=== PATIENT | female | born 1970 | race Caucasian/White ===

== ENCOUNTER 2024-07-26 17:27 | Emergency (ER) | payer MEDICARE, MEDICAID ==
[~2024-07-26] VITALS: Ht 167.6 cm; Wt 55.0 kg
[~2024-07-26 17:27] MED LIST: APIX2.5T PO; BACL5TAB PO; CLOB2.5O2 GT; FORM20VI IH; HYDR50SO MT; LEVO50TA8; LORA-249 PO; MIDO10TA3 PO; MIRT7.5T11 MT; PRED5TAB PO; QUET25TA36 PO; SCOP1PAT2 TOP; VALP250S25 GT
[2024-07-26 17:30] VITALS: O2SAT 93
[2024-07-26 18:21] LABS: BG BASE EXCESS 2.7 mmol/L (-2.0-3.0); BG CARBOXYHEMOGLOBIN 0.3 % (0.5-1.5); BG DEOXYHEMOGLOBIN 9.7 % (0.0-5.0); BG FRACTION INSPIRED OXYGEN 60; BG HCO3 ACT 27.3 mmol/L (21.0-28.0); BG METHEMOGLOBIN 0.3 % (0.5-1.5); BG OXYGEN SATURATION 90.2 % (94.0-98.0); BG OXYHEMOGLOBIN 89.7 % (94.0-98.0); BG PO2 55.9 mmHg (83.0-108.0); BG SAMPLE SITE RIGHT RADIAL; BG TOTAL HEMOGLOBIN 11.2 g/dL (12.0-16.0); BG VENT MODE TRACH COLLAR
[2024-07-26 20:07] VITALS: O2SAT 52
[2024-07-26 20:18] LABS: HEMATOCRIT. 32.6 % (36.0-48.0); HEMOGLOBIN. 10.7 g/dL (12.0-16.0); MEAN CORPUSCULAR HGB CONC 32.8 g/dL (31.0-37.0); MEAN CORPUSCULAR VOLUME 109.8 fL (81.0-99.0); MEAN PLATELET VOLUME 8.8 fl (7.4-10.4); PLATELET 253 x1000/uL (130-400); RED BLOOD CELL COUNT 2.97 mill/uL (4.2-5.4); RED CELL DISTRIBUTION WIDTH 16.6 % (11.6-14.6); WHITE BLOOD COUNT 11.9 x1000/uL (4.5-11.0)
[2024-07-26 20:27] LABS: CHLORIDE 100 mEq/L (98-107); POTASSIUM 3.8 mEq/L (3.5-5.1); SODIUM 136 mEq/L (136-145)
[2024-07-26 20:28] LABS: CALCIUM 11.3 mg/dL (8.7-10.4); CARBON DIOXIDE 25 mEq/L (21-32)
[2024-07-26 20:33] LABS: GLUCOSE 87 mg/dL (70-105); UREA NITROGEN BLOOD 52 mg/dL (9-23)
[2024-07-26 20:34] LABS: TROPONIN I HIGH SENSITIVITY 23 ng/L (3.0-34)
[2024-07-26 20:35] LABS: ALANINE AMINOTRANSFERASE < 7 IU/L (10-49); ALBUMIN 3.9 g/dL (3.2-4.8); ASPARTATE AMINOTRANSFERASE 24 IU/L (<34); BILIRUBIN DIRECT 0.2 mg/dL (<=3.0); BILIRUBIN TOTAL 0.4 mg/dL (0.1-1.0)
[2024-07-26 20:36] LABS: DIFFERENTIAL COMMENT 1
[2024-07-26 20:41] LABS: CREATININE 6.2 mg/dL (0.6-1.0)
[2024-07-26 21:46] LABS: ANISOCYTOSIS 1+; PLATELET ESTIMATE NORMAL
[2024-07-27] MEDS ORDERED: LORAZEPAM 2MG/ML INJ IV PRN (06:45)
[2024-07-27] MEDS: LEVOTHYROXINE SODIUM 50MCG TABLET PO SCH (07:50)
[2024-07-27] MEDS ORDERED: VALPROATE SODIUM GT SCH (09:00)
[2024-07-27] MEDS ORDERED: CLOBAZAM GT SCH ×2 (09:00→17:00)
[2024-07-27] MEDS: APIXABAN 5 MG TABLET PO SCH (09:54)
[2024-07-27] MEDS: QUETIAPINE FUMARATE 25MG TABLET PO SCH (09:54)
[2024-07-27] MEDS: PREDNISONE 5MG TABLET PO SCH (09:54)
[2024-07-27] MEDS: VALPROATE SODIUM 250MG/5ML UDC PO SCH (09:54)
[2024-07-27] MEDS: BACLOFEN 10MG TABLET PO SCH (09:54)
[2024-07-27 10:41] LABS: CHLORIDE 98 mEq/L (98-107); POTASSIUM 3.8 mEq/L (3.5-5.1); SODIUM 135 mEq/L (136-145)
[2024-07-27 10:42] LABS: CALCIUM 11.3 mg/dL (8.7-10.4); CARBON DIOXIDE 29 mEq/L (21-32)
[2024-07-27 10:47] LABS: GLUCOSE 76 mg/dL (70-105); UREA NITROGEN BLOOD 57 mg/dL (9-23)
[2024-07-27 10:48] LABS: VALPROIC ACID 31.6 ug/mL (50-100)
[2024-07-27 10:50] LABS: THYROID STIMULATING HORMONE 6.32 uIU/mL (0.55-4.78)
[2024-07-27 10:52] LABS: BASOPHILS % 0.2 % (0.0-2.0); HEMATOCRIT. 29.6 % (36.0-48.0); HEMOGLOBIN. 9.7 g/dL (12.0-16.0); LYMPHOCYTES % 17.9 % (20.0-50.0); MEAN CORPUSCULAR HEMOGLOBIN 36.3 pg (28.0-32.0); MEAN CORPUSCULAR HGB CONC 32.9 g/dL (31.0-37.0); MEAN CORPUSCULAR VOLUME 110.3 fL (81.0-99.0); MEAN PLATELET VOLUME 8.9 fl (7.4-10.4); MONOCYTES % 7.2 % (2.0-8.0); NEUTROPHILS % 71.7 % (40.0-76.0); PLATELET 233 x1000/uL (130-400); RED BLOOD CELL COUNT 2.68 mill/uL (4.2-5.4); RED CELL DISTRIBUTION WIDTH 16.1 % (11.6-14.6); WHITE BLOOD COUNT 6.2 x1000/uL (4.5-11.0)
[2024-07-27 11:00] LABS: DIFFERENTIAL COMMENT 1
[2024-07-27 11:29] VITALS: BP 104/59; PULSE 94; RESP 19; TEMP 37.2; O2SAT 100
[2024-07-27] MEDS ORDERED: BACLOFEN 5 MG PO SCH (21:00)
== END 2024-07-27 14:50 | disposition left against medical advice (07) ==
LOC: ER 17:27
DX: R45.851 Suicidal ideations (principal); N18.6 End stage renal disease; Z74.01 Bed confinement status; Z79.01 Long term (current) use of anticoagulants; Z79.52 Long term (current) use of systemic steroids; Z79.899 Other long term (current) drug therapy; Z88.2 Allergy status to sulfonamides; Z99.2 Dependence on renal dialysis; Z20.822 Contact with and (suspected) exposure to COVID-19
CPT/HCPCS: 99285; 71045; 87426; 80076; 80048 ×2; 83880; 83605; 85025 ×2; 84484; 87804 ×2; 36415 ×2; 82805; 82375; 93005; 36600; 83735; 84443; 80165; J7512